=== PATIENT | female | born 1970 | race Caucasian/White ===

== ENCOUNTER → 2019-11-10 | Outpatient (CLI) | payer OTHER | LOC: HYPER 14:56 | DX: T81.31XA Disruption of external operation (surgical) wound, not elsewhere classified, initial encounter (principal); L89.626 Pressure-induced deep tissue damage of left heel; R60.0 Localized edema; J45.909 Unspecified asthma, uncomplicated; Z87.891 Personal history of nicotine dependence; Y83.8 Other surgical procedures as the cause of abnormal reaction of the patient, or of later complication, without mention of misadventure at the time of the procedure; Y92.89 Other specified places as the place of occurrence of the external cause ==

== ENCOUNTER → 2019-11-17 | Outpatient (CLI) | payer OTHER | LOC: HYPER 10:01 | DX: T81.31XD Disruption of external operation (surgical) wound, not elsewhere classified, subsequent encounter (principal); L89.626 Pressure-induced deep tissue damage of left heel; S91.002D Unspecified open wound, left ankle, subsequent encounter; G89.29 Other chronic pain; J45.909 Unspecified asthma, uncomplicated; Z87.891 Personal history of nicotine dependence; X58.XXXD Exposure to other specified factors, subsequent encounter; Y83.8 Other surgical procedures as the cause of abnormal reaction of the patient, or of later complication, without mention of misadventure at the time of the procedure ==

== ENCOUNTER → 2019-11-24 | Outpatient (CLI) | payer OTHER | LOC: HYPER 09:09 | DX: T81.31XD Disruption of external operation (surgical) wound, not elsewhere classified, subsequent encounter (principal); L89.626 Pressure-induced deep tissue damage of left heel; M19.072 Primary osteoarthritis, left ankle and foot; R60.0 Localized edema; G89.18 Other acute postprocedural pain; G89.29 Other chronic pain; J45.909 Unspecified asthma, uncomplicated; Z87.891 Personal history of nicotine dependence; Y83.8 Other surgical procedures as the cause of abnormal reaction of the patient, or of later complication, without mention of misadventure at the time of the procedure ==

== ENCOUNTER → 2019-11-29 | Outpatient (CLI) | payer OTHER ==
[~2019-11-29] VITALS: Ht 160 cm; Wt 91.2 kg
[~2019-11-29] MED LIST: DULOXETINE HCL30 MG PO; HYDROCODON-ACE1 EAC7 PO; LYRICA 50 MG50 MG PO; OMEPRAZOLE 20 M20 M1 PO; TRAMADOL 50 MG50 MG PO; VENTOLIN HFA INH8 GM INH; VITAMIN B-1100 M2 PO; VITAMIN B12-FO1 EAC1 PO; VITAMIN C100 MG PO; VITAMIN E1000 UNIT PO; [UNRECOGNIZED DRUG - OTHER] TOP
--- NOTE | ~2019-11-29 | HPC ---
[facility] [place] [address] PAIN MANAGEMENT CONSULTATION Name: THOMAS HANSEN Room #: REG AURELIO Rebeca.#: [id number] Admission: 11/29/19 Attend Phys: Victoriano Sanders MD Discharge: Date of : 66 Report #: [id number] THIS REPORT FOR: cc: [facility] - No family physician/PCP [facility] - No family physician/PCP Victoriano Sanders MD ~ CC: [facility] physician/PCP Victoriano Epstein MD DATE OF SERVICE: 11/29/2019 CHIEF COMPLAINT: Pain in right foot with open wound. SUBJECTIVE: The patient is a 49 year old, a friend of Maira Rae, nurse practitioner in our clinic. She underwent surgery on 10/06/2019 and developed a wound infection, which has been slowly healing. The pain is pretty severe. She is unable to stand for long without increasing pain and swelling. They started her initially on gabapentin, but it caused her swelling that had actually worsened her condition. They took her off and she has been on a combination of Cymbalta and tramadol. That is inadequate and her pain as averaging between a 4 and a 7 on a daily basis. She describes it sharp, stabbing and tender aching, burning. MEDICATIONS: Omeprazole, tramadol, Cymbalta, Ventolin, pain cream, vitamin C, vitamin B and E. ALLERGIES: None. PAST MEDICAL AND SURGICAL HISTORY: Significant for asthma, previous foot surgery. 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 REVIEW OF SYSTEMS: Positive only for some mild weakness. She complains of slow healing. PHYSICAL EXAMINATION: GENERAL: She is very pleasant 49 year old. VITAL SIGNS: Blood pressure is 111/78, heart rate 86, respirations 16, O2 sat 97, BMI 35.6. EXTREMITIES: She has a dark eschar healing over her left heel, but this looks clean and looks like it is healing well. There is also a nicely granulating wound on the top of her foot that does not look infected. IMPRESSION: Severe right foot pain related to wound infection and slow healing. [facility] [address] [place] [address] PAIN MANAGEMENT CONSULTATION Name: THOMAS HANSEN Room #: REG AURELIO Velez#: [id number] Admission: 11/29/19 Attend Phys: Victoriano Sanders MD Discharge: Date of : 66 Report #: [id number] Neuropathic components of his pain. RECOMMENDATIONS: Continue on Cymbalta add Lyrica 50 mg b.i.d., hydrocodone in place of tramadol and ibuprofen p.r.n. All these medications can be tapered once the wound is healed. Opioid discussion was had discussing side effects. Importance of safeguarding medicine, 60 tablets were provided for her and we will see her back as needed. By: [id number] Victoriano Sanders MD /nt
[2019-11-29 14:12] VITALS: BP 111/78
--- NOTE | 2019-11-29 15:00 | NUR ---
Pain Clinic Assessment: 1. History of Osteoarthritis: Not Applicable Not Applicable History of Rheumatoid Arthritis: Not Applicable 2. Height: 5 ft. 3 in. 160.0 cm. Weight: 201.0 lb. oz. 91.173 kg. Patient's BMI: 35.6 3. Vital Signs: BP: 111/78 Pulse: 86 Resp: 16 Temp: 02 Sat: 97 ECG Mon: 4. Pain Intensity: 6 5. Fall Risk: Dizziness: N Needs help standing or walking: N Fallen in the last 3 months: N Fall risk comments: 6. Patient on Blood Thinner: None 7. History of Hypertension: N 8. Opioid Therapy greater than 6 weeks: Y Opiate Contract Signed: 9. Risk Assessment Tool Provided: low-0 10. Functional Assessment Tool: 68/70 11. Recreational Drug Use: Never Drug Type: Tobacco Use: Never Smoker Tobacco Type: Amount or Packs/day: How Many Years: Alcohol Use: No Frequency: Quant:
== END ==
LOC: PAIN 07:05
DX: M79.671 Pain in right foot (principal); J45.909 Unspecified asthma, uncomplicated; Z79.891 Long term (current) use of opiate analgesic; Z79.899 Other long term (current) drug therapy

== ENCOUNTER → 2019-12-10 | Outpatient (CLI) | payer OTHER | LOC: HYPER 10:46 | DX: T81.31XD Disruption of external operation (surgical) wound, not elsewhere classified, subsequent encounter (principal); L89.620 Pressure ulcer of left heel, unstageable; S91.002D Unspecified open wound, left ankle, subsequent encounter; R60.0 Localized edema; G89.18 Other acute postprocedural pain; G89.29 Other chronic pain; M19.072 Primary osteoarthritis, left ankle and foot; L84 Corns and callosities; J45.909 Unspecified asthma, uncomplicated; Z87.891 Personal history of nicotine dependence; Z98.890 Other specified postprocedural states; X58.XXXD Exposure to other specified factors, subsequent encounter; Y83.8 Other surgical procedures as the cause of abnormal reaction of the patient, or of later complication, without mention of misadventure at the time of the procedure ==

== ENCOUNTER → 2019-12-29 | Outpatient (CLI) | payer OTHER | LOC: HYPER 10:09 | DX: T81.31XD Disruption of external operation (surgical) wound, not elsewhere classified, subsequent encounter (principal); L89.623 Pressure ulcer of left heel, stage 3; L84 Corns and callosities; R60.0 Localized edema; G89.18 Other acute postprocedural pain; G89.29 Other chronic pain; J45.909 Unspecified asthma, uncomplicated; M19.072 Primary osteoarthritis, left ankle and foot; Z98.890 Other specified postprocedural states; Z87.891 Personal history of nicotine dependence; Y83.8 Other surgical procedures as the cause of abnormal reaction of the patient, or of later complication, without mention of misadventure at the time of the procedure ==

== ENCOUNTER → 2020-01-05 | Outpatient (CLI) | payer OTHER | LOC: HYPER 09:53 | DX: T81.31XD Disruption of external operation (surgical) wound, not elsewhere classified, subsequent encounter (principal); L89.623 Pressure ulcer of left heel, stage 3; L84 Corns and callosities; R60.0 Localized edema; G89.18 Other acute postprocedural pain; G89.29 Other chronic pain; J45.909 Unspecified asthma, uncomplicated; M19.072 Primary osteoarthritis, left ankle and foot; Z87.891 Personal history of nicotine dependence; Z98.890 Other specified postprocedural states; Y83.8 Other surgical procedures as the cause of abnormal reaction of the patient, or of later complication, without mention of misadventure at the time of the procedure ==

== ENCOUNTER → 2020-01-12 | Outpatient (CLI) | payer OTHER | LOC: HYPER 12:56 | DX: T81.31XD Disruption of external operation (surgical) wound, not elsewhere classified, subsequent encounter (principal); L89.623 Pressure ulcer of left heel, stage 3; R60.0 Localized edema; G89.18 Other acute postprocedural pain; M19.072 Primary osteoarthritis, left ankle and foot; Z98.890 Other specified postprocedural states; G89.29 Other chronic pain; J45.909 Unspecified asthma, uncomplicated; Z87.891 Personal history of nicotine dependence; Y83.8 Other surgical procedures as the cause of abnormal reaction of the patient, or of later complication, without mention of misadventure at the time of the procedure ==

== ENCOUNTER → 2020-01-24 | Outpatient (CLI) | payer OTHER | LOC: HYPER 10:00 | DX: T81.31XD Disruption of external operation (surgical) wound, not elsewhere classified, subsequent encounter (principal); L89.623 Pressure ulcer of left heel, stage 3; L84 Corns and callosities; R60.0 Localized edema; G89.18 Other acute postprocedural pain; G89.29 Other chronic pain; M19.072 Primary osteoarthritis, left ankle and foot; J45.909 Unspecified asthma, uncomplicated; Z98.890 Other specified postprocedural states; Z87.891 Personal history of nicotine dependence; Y83.8 Other surgical procedures as the cause of abnormal reaction of the patient, or of later complication, without mention of misadventure at the time of the procedure ==

== ENCOUNTER → 2020-02-10 | Outpatient (CLI) | payer OTHER | LOC: HYPER 09:00 | DX: T81.31XD Disruption of external operation (surgical) wound, not elsewhere classified, subsequent encounter (principal); L89.623 Pressure ulcer of left heel, stage 3; L84 Corns and callosities; R60.0 Localized edema; G89.18 Other acute postprocedural pain; G89.29 Other chronic pain; J45.909 Unspecified asthma, uncomplicated; M19.072 Primary osteoarthritis, left ankle and foot; Z98.890 Other specified postprocedural states; Z87.891 Personal history of nicotine dependence; Y83.8 Other surgical procedures as the cause of abnormal reaction of the patient, or of later complication, without mention of misadventure at the time of the procedure ==

== ENCOUNTER → 2020-02-24 | Outpatient (CLI) | payer OTHER | LOC: HYPER 13:43 | DX: T81.31XD Disruption of external operation (surgical) wound, not elsewhere classified, subsequent encounter (principal); L89.623 Pressure ulcer of left heel, stage 3; L84 Corns and callosities; R60.0 Localized edema; G89.18 Other acute postprocedural pain; G89.29 Other chronic pain; J45.909 Unspecified asthma, uncomplicated; M19.072 Primary osteoarthritis, left ankle and foot; Z87.891 Personal history of nicotine dependence; Z98.890 Other specified postprocedural states ==

== ENCOUNTER → 2020-03-16 | Outpatient (CLI) | payer OTHER | LOC: HYPER 08:00 | PROVIDERS: ATTEND Emergency Medicine | DX: T81.31XD Disruption of external operation (surgical) wound, not elsewhere classified, subsequent encounter (principal); L89.623 Pressure ulcer of left heel, stage 3; R60.0 Localized edema; J45.909 Unspecified asthma, uncomplicated; Z87.891 Personal history of nicotine dependence; Y83.8 Other surgical procedures as the cause of abnormal reaction of the patient, or of later complication, without mention of misadventure at the time of the procedure ==

== ENCOUNTER → 2020-03-30 | Outpatient (CLI) | payer OTHER | LOC: HYPER 10:21 | PROVIDERS: ATTEND Emergency Medicine Emergency Medical Services | DX: T81.31XD Disruption of external operation (surgical) wound, not elsewhere classified, subsequent encounter (principal); L89.623 Pressure ulcer of left heel, stage 3; R60.0 Localized edema; G89.18 Other acute postprocedural pain; G89.29 Other chronic pain; J45.909 Unspecified asthma, uncomplicated; M19.072 Primary osteoarthritis, left ankle and foot; Z98.890 Other specified postprocedural states; Z87.891 Personal history of nicotine dependence; L84 Corns and callosities; Y83.8 Other surgical procedures as the cause of abnormal reaction of the patient, or of later complication, without mention of misadventure at the time of the procedure ==

== ENCOUNTER → 2020-04-13 | Outpatient (CLI) | payer OTHER | LOC: HYPER 07:59 | PROVIDERS: ATTEND Emergency Medicine | DX: T81.31XD Disruption of external operation (surgical) wound, not elsewhere classified, subsequent encounter (principal); L89.623 Pressure ulcer of left heel, stage 3; R60.0 Localized edema; G89.18 Other acute postprocedural pain; G89.29 Other chronic pain; M19.072 Primary osteoarthritis, left ankle and foot; J45.909 Unspecified asthma, uncomplicated; Z87.891 Personal history of nicotine dependence; Y83.8 Other surgical procedures as the cause of abnormal reaction of the patient, or of later complication, without mention of misadventure at the time of the procedure ==

== ENCOUNTER → 2020-05-03 | Outpatient (CLI) | payer OTHER | LOC: HYPER 08:01 | PROVIDERS: ATTEND Emergency Medicine | DX: T81.31XD Disruption of external operation (surgical) wound, not elsewhere classified, subsequent encounter (principal); L89.623 Pressure ulcer of left heel, stage 3; R60.0 Localized edema; G89.18 Other acute postprocedural pain; G89.29 Other chronic pain; M19.072 Primary osteoarthritis, left ankle and foot; J45.909 Unspecified asthma, uncomplicated; Z87.891 Personal history of nicotine dependence; Y83.8 Other surgical procedures as the cause of abnormal reaction of the patient, or of later complication, without mention of misadventure at the time of the procedure ==

== ENCOUNTER → 2020-05-18 | Outpatient (CLI) | payer OTHER | LOC: HYPER 09:00 | PROVIDERS: ATTEND Emergency Medicine | DX: T81.31XD Disruption of external operation (surgical) wound, not elsewhere classified, subsequent encounter (principal); L89.623 Pressure ulcer of left heel, stage 3; L84 Corns and callosities; R60.0 Localized edema; J45.909 Unspecified asthma, uncomplicated; Z87.891 Personal history of nicotine dependence; Y83.8 Other surgical procedures as the cause of abnormal reaction of the patient, or of later complication, without mention of misadventure at the time of the procedure ==

== ENCOUNTER → 2020-05-24 | Outpatient (CLI) | payer OTHER | LOC: HYPER 08:04 | PROVIDERS: ATTEND Emergency Medicine | DX: T81.31XD Disruption of external operation (surgical) wound, not elsewhere classified, subsequent encounter (principal); L89.623 Pressure ulcer of left heel, stage 3; R60.0 Localized edema; G89.18 Other acute postprocedural pain; G89.29 Other chronic pain; J45.909 Unspecified asthma, uncomplicated; M19.072 Primary osteoarthritis, left ankle and foot; Z87.891 Personal history of nicotine dependence; Z98.890 Other specified postprocedural states; Y83.8 Other surgical procedures as the cause of abnormal reaction of the patient, or of later complication, without mention of misadventure at the time of the procedure ==

== ENCOUNTER → 2020-06-01 | Outpatient (CLI) | payer OTHER | LOC: HYPER 09:04 | PROVIDERS: ATTEND Emergency Medicine | DX: T81.31XD Disruption of external operation (surgical) wound, not elsewhere classified, subsequent encounter (principal); L89.623 Pressure ulcer of left heel, stage 3; R60.0 Localized edema; G89.18 Other acute postprocedural pain; G89.29 Other chronic pain; J45.909 Unspecified asthma, uncomplicated; M19.072 Primary osteoarthritis, left ankle and foot; Z98.890 Other specified postprocedural states; Z87.891 Personal history of nicotine dependence; Y83.8 Other surgical procedures as the cause of abnormal reaction of the patient, or of later complication, without mention of misadventure at the time of the procedure ==

== ENCOUNTER → 2021-05-15 | Outpatient (CLI) | payer OTHER | LOC: HYPER 08:35 | PROVIDERS: ATTEND Emergency Medicine | DX: T81.31XD Disruption of external operation (surgical) wound, not elsewhere classified, subsequent encounter (principal); L89.623 Pressure ulcer of left heel, stage 3; R60.0 Localized edema; G89.29 Other chronic pain; J45.909 Unspecified asthma, uncomplicated; L84 Corns and callosities; G89.18 Other acute postprocedural pain; M19.072 Primary osteoarthritis, left ankle and foot; Z87.891 Personal history of nicotine dependence; Z98.890 Other specified postprocedural states; Z79.899 Other long term (current) drug therapy; Y83.8 Other surgical procedures as the cause of abnormal reaction of the patient, or of later complication, without mention of misadventure at the time of the procedure ==